=== PATIENT | female | born 1965 | race Caucasian/White ===

== ENCOUNTER → 2024-09-02 | Outpatient (CLI) | payer OTHER, MEDICAID, SELFPAY ==
--- NOTE | 2024-09-02 11:00 | XR_ITS ---
Examination: Breast ultrasound, unilateral, right complete Date and time of exam: September 02, 2024 1027 hours INDICATIONS: Mammogram August 16, 2024 12:00 microcalcifications right breast Technique: Real-time urena scale ultrasonographic imaging performed right breast including all 4 quadrants as well as nipple retroareolar and axillary region. Findings: Retroareolar oval mass circumscribed 11 x 3 x 12 mm Retroareolar oval mass circumscribed 6 x 5 mm Retroareolar oval mass circumscribed 5 x 6 mm Image 3 demonstrates possible nodule in the right breast 1:00 position IMPRESSION: BI-RADS Category 0: Incomplete: Need additional imaging evaluation This patient should return to exclude nodule in the 1:00 position right breast 6 month right breast sonogram follow-up is needed to document stability of retroareolar nodule
--- NOTE | 2024-09-02 11:30 | XR_ITS ---
Examination: Diagnostic digital mammography, unilateral, right Computer aided detection 3-D breast Tomosynthesis, unilateral Date and time of exam: August 2024 1045 hours INDICATIONS: Mammogram August 16, 2024 grouped microcalcifications 12:00 position right breast Technique: Nonmagnified MLO, CC views of the right breast have been obtained, reconstructed from 3-D Tomosynthesis images. R2 computer aided detection program utilized for evaluation of suspicious masses and/or abnormal calcifications. 3-D Tomosynthesis images obtained. Findings: The breast is heterogeneously dense, which may obscure small masses Suspicious microcalcifications confirmed upper slightly inner right breast Impression: BI-RADS category 4: Suspicious for malignancy Suspicious microcalcifications confirmed upper slightly inner right breast, biopsy is needed to exclude breast carcinoma These calcifications are amenable to stereotactic breast biopsy for diagnosis
== END | disposition home or self-care (01) ==
LOC: CDIM 10:10
PROVIDERS: Referring Provider Internal Medicine; Visit Provider Internal Medicine
DX: R92.341 Mammographic extreme density, right breast (principal); R92.0 Mammographic microcalcification found on diagnostic imaging of breast; N63.12 Unspecified lump in the right breast, upper inner quadrant
CPT/HCPCS: 76641; 77061; 77065; G0279

== ENCOUNTER → 2025-02-02 | Outpatient (CLI) | payer MEDICARE, MEDICAID, SELFPAY ==
--- NOTE | 2025-02-02 13:45 | XR_ITS ---
Examination: PA lateral chest 2 views TECHNIQUE: Upright PA lateral chest 2 views Exam date and time: February 02, 2025 1553 hours Comparison December 13, 2022 INDICATIONS: Shortness of breath chest tightness one month FINDINGS: Significant hyperexpansion Normal heart size No pneumonia or pulmonary edema IMPRESSION: Significant hyperexpansion
== END | disposition home or self-care (01) ==
LOC: CDIM 13:36
PROVIDERS: PCP Internal Medicine; Referring Provider Internal Medicine; Visit Provider Internal Medicine
DX: R06.02 Shortness of breath (principal)
CPT/HCPCS: 71046